=== PATIENT | female | born 1955 | race Asian ===

== ENCOUNTER 2019-05-19 09:49 | Day surgery (SDC) | payer MEDICARE ==
[2019-05-16 15:13] VITALS: BMI 37.8
--- NOTE | 2019-05-19 07:41 | P.GSHP ---
History of Present Illness H&P Date: 05/19/19 CHIEF COMPLAINT: Colon screen HISTORY OF PRESENT ILLNESS: The patient is a 63-year-old female who presents for colon screen. Lower endoscopy was offered for further evaluation and management. PAST MEDICAL HISTORY: Please see list. PAST SURGICAL HISTORY: Please see list. MEDICATIONS: Please see list. ALLERGIES: Please see list. SOCIAL HISTORY: No illicit drug use FAMILY HISTORY: No reports of Crohn disease or ulcerative colitis. REVIEW OF ORGAN SYSTEMS: CONSTITUTIONAL: No reports of fevers or chills. PHYSICAL EXAM: VITAL SIGNS: Stable GENERAL: Well-developed pleasant in no acute distress. HEENT: No scleral icterus. Extraocular movements grossly intact. Moist buccal mucosa. NECK: Supple without lymphadenopathy. CHEST: Unlabored respirations. Equal bilateral excursions. CARDIOVASCULAR: Regular rate and rhythm. Distal 2+ pulses. ABDOMEN: Soft, nontender, nondistended. MUSCULOSKELETAL: No clubbing, cyanosis, or edema. ASSESSMENT: 1. Colon screen. PLAN: 1. Recommend proceeding with a lower endoscopy Past Medical History Past Medical History: Diabetes Mellitus, Eye Disorder, Hypertension, Musculoskeletal Disorder Additional Past Medical History / Comment(s): FREQUENT DIARHEA, HAS IDIOPATHIC JUXTAFOVEAL TELANGIECTASIS - RETINAL DISORDER OF EYES -LEGALLY BLIND, PROBLEM W/ RT SHOULDER, ROTATOR CUFF. History of Any Multi-Drug Resistant Organisms: None Reported Past Surgical History: Cholecystectomy, Hysterectomy, Tubal Ligation Additional Past Surgical History / Comment(s): COLONOSCOPY. Past Anesthesia/Blood Transfusion Reactions: Motion Sickness Additional Past Anesthesia/Blood Transfusion Reaction / Comment(s): MOTION SICKNESS IN PAST. Past Psychological History: Depression Smoking Status: Never smoker Past Alcohol Use History: None Reported Past Drug Use History: None Reported - Past Family History Sister(s) Family Medical History: Cancer Brother(s) Additional Family Medical History / Comment(s): "HEART PROBLEMS" Medications and Allergies Home Medications Medication Instructions Recorded Confirmed Type Enalapril [Vasotec] 20 mg PO DAILY 06/16/14 05/16/19 History Furosemide [Lasix] 20 mg PO DAILY 06/16/14 05/16/19 History Insulin NPH Hum/Reg Insulin Hm 30 unit SQ BID 01/29/15 05/16/19 History [NovoLIN 70-30 100 UNIT/ML VIAL] Metoprolol Tartrate [Lopressor] 50 mg PO BID 04/27/19 05/16/19 History metFORMIN HCL [Glucophage] 500 mg PO BID 04/27/19 05/16/19 History Allergies Allergy/AdvReac Type Severity Reaction Status Date / Time latex Allergy Dyspnea Verified 05/16/19 14:59
[~2019-05-19 09:49] MED LIST: LACTATED RINGERS 1,000 ML IV SCH; LIDOCAINE 1% (10MG/ML) FOR IV START INTRADERMA PRN
[2019-05-19 10:24] VITALS: RESP 16; TEMP 97.4
[2019-05-19] MEDS ORDERED: INSULIN ASPART (NovoLOG) 100 UNIT/ML VIAL SQ ONE (10:27)
[2019-05-19] MEDS ORDERED: LIDOCAINE 1% INJ 10MG/ML (20 ML MDV) ONE (10:33)
[2019-05-19] MEDS ORDERED: LABETALOL 5 MG/ML VIAL MDV ONE (10:33)
[2019-05-19] MEDS ORDERED: PROPOFOL 10 MG/ML 20 ML VIAL IV ONE (10:33)
[2019-05-19 10:37] LABS: Glucose,Whole Blood 277 mg/dL (75-99)
[2019-05-19 11:11] LABS: Glucose,Whole Blood 278 mg/dL (75-99)
--- NOTE | 2019-05-19 11:14 | P.PCN ---
Date of Procedure: 05/19/19 Description of Procedure: PREOPERATIVE DIAGNOSIS: Personal history of colon polyps Colonoscopy screening POSTOPERATIVE DIAGNOSIS: Personal history of colon polyps Colonoscopy screening Sigmoid diverticulosis Transverse colon polyp OPERATION: Colonoscopy to the ileocecal valve and appendiceal orifice. Colonoscopy with cold forceps biopsies SURGEON: Yudelka Aguilar MD. ANESTHESIA: MAC. INDICATIONS: The patient is an 63-year-old female who presents with personal history of colon polyps. Last colonoscopy over 5 years. Benefits and risks were described and informed consent was obtained. DESCRIPTION OF PROCEDURE: The patient had undergone Suprep. She had been brought into the operating room and laid in the left lateral decubitus position. After adequate intravenous sedation, the rectum was examined with 2% lidocaine jelly. No external hemorrhoids were encountered. The rectal tone was within normal limits. No lesions were palpated in the rectal vault. An Olympus colonoscope was advanced until the ileocecal valve and appendiceal orifice were clearly viewed. The prep was excellent. Sigmoid diverticulosis was encountered. Redundancy was identified at the distal sigmoid colon from severe diverticulosis. Distal transverse colon 4mm polyp was removed with cold forceps biopsy. No evidence of focal colitis was found. Retroflexion of the scope demonstrated grade 1 internal hemorrhoids without active bleeding or inflammation. The colon was desufflated. The patient had tolerated the procedure well. Withdrawal time was over 6 minutes. FINDINGS: Aronchick preparation quality scale 1 (1-5) Internal hemorrhoids, grade 1 No external hemorrhoids No arteriovenous malformations. Sigmoid diverticulosis with redundancy at distal sigmoid colon. Removal of 1 polyp: - Cold forceps biopsy at distal transverse colon, 4 mm polyp. No focal colitis. RECOMMENDATIONS: Repeat colonoscopy in 5 years, 2024 Plan - Discharge Summary Discharge Rx Participant: No New Discharge Prescriptions: Continue Furosemide [Lasix] 20 mg PO DAILY Enalapril [Vasotec] 20 mg PO DAILY Insulin NPH Hum/Reg Insulin Hm [NovoLIN 70-30 100 UNIT/ML VIAL] 30 unit SQ BID metFORMIN HCL [Glucophage] 500 mg PO BID Metoprolol Tartrate [Lopressor] 50 mg PO BID Discharge Medication List Enalapril [Vasotec] 20 mg PO DAILY 06/16/14 [History] Furosemide [Lasix] 20 mg PO DAILY 06/16/14 [History] Insulin NPH Hum/Reg Insulin Hm [NovoLIN 70-30 100 UNIT/ML VIAL] 30 unit SQ BID 01/29/15 [History] Metoprolol Tartrate [Lopressor] 50 mg PO BID 04/27/19 [History] metFORMIN HCL [Glucophage] 500 mg PO BID 04/27/19 [History] Follow up Appointment(s)/Referral(s): Yudelka Aguilar MD [STAFF PHYSICIAN] - As Needed Patient Instructions/Handouts: Diverticulosis (DC), Colorectal Polyps (DC), Diverticulosis Diet (GEN) Activity/Diet/Wound Care/Special Instructions: Repeat colonoscopy 5 years, 2024 Discharge Disposition: HOME SELF-CARE
[2019-05-19 11:23] VITALS: BP 172/79; PULSE 82
== END 2019-05-19 11:51 | disposition home or self-care (01) ==
LOC: ORWHC2ENDO 09:49
PROVIDERS: ATTEND Surgery Plastic and Reconstructive Surgery
DX: Z12.11 Encounter for screening for malignant neoplasm of colon (principal); D12.3 Benign neoplasm of transverse colon; Z86.010 Personal history of colon polyps; K57.30 Diverticulosis of large intestine without perforation or abscess without bleeding; Q43.8 Other specified congenital malformations of intestine; K64.0 First degree hemorrhoids; Z91.040 Latex allergy status; E11.9 Type 2 diabetes mellitus without complications; H54.8 Legal blindness, as defined in USA; I10 Essential (primary) hypertension; M25.811 Other specified joint disorders, right shoulder; Z87.19 Personal history of other diseases of the digestive system; H35.073 Retinal telangiectasis, bilateral; Z90.49 Acquired absence of other specified parts of digestive tract; Z90.710 Acquired absence of both cervix and uterus; Z98.51 Tubal ligation status; Z87.898 Personal history of other specified conditions; F32.9 Major depressive disorder, single episode, unspecified; Z80.9 Family history of malignant neoplasm, unspecified; Z82.49 Family history of ischemic heart disease and other diseases of the circulatory system; Z79.899 Other long term (current) drug therapy; Z79.4 Long term (current) use of insulin; Z86.69 Personal history of other diseases of the nervous system and sense organs
CPT/HCPCS: 88305; 45380; J2001; J2704

== ENCOUNTER → 2019-05-19 | Outpatient (CLI) | payer MEDICARE ==
[2019-05-19 12:41] LABS: African American GFR (CKD) >90 (>60 ml/min/1.73 sqM); Blood Urea Nitrogen 11 mg/dL (7-17); Non-African American GFR(CKD) >90 (>60 ml/min/1.73 sqM)
--- NOTE | 2019-05-19 14:01 | CT ---
EXAMINATION TYPE: CT abdomen pelvis w con DATE OF EXAM: 05/19/2019 COMPARISON: 04/21/2010 HISTORY: 63-year-old female Diverticulitis, abdominal pain TECHNIQUE: Contiguous axial scanning of the abdomen and pelvis following administration of 100 ml Iso vega 300 IV contrast. Delayed images through the kidneys and coronal/sagittal reconstructions perform ed. CT DLP: 2146.4 mGycm Automated exposure control for dose reduction was used. FINDINGS: LUNG BASES: Streaky bibasilar atelectasis, left greater than right. Dense mitral annular calcificatio ns. LIVER/GB: Liver enlarged measuring 23.5 cm cranial caudal with low attenuation. No focal liver lesion or biliary ductal dilatation. Portal venous system is patent. Cholecystectomy clips. PANCREAS: No significant abnormality is seen. SPLEEN: No significant abnormality is seen. ADRENALS: No significant abnormality is seen. KIDNEYS: A 1 cm cortical hypodensity in each kidney, too small for accurate CT characterization, like ly tiny cysts. LYMPH NODES: No mesenteric or retroperitoneal lymphadenopathy. Subtle residual mid abdominal Kp me sentery is redemonstrated. Changes overall have diminished from 2011. REPRODUCTIVE ORGANS: Multiple pelvic phlebolith. Uterus surgically absent. Neither ovary clearly iden tified. Bladder partially distended. No abnormal fluid collection in the pelvis or pelvic lymphadenop athy. BOWEL: No dilated small bowel, free fluid, or free air. No significant stool burden. No pericolonic inflammatory change. Diverticula is seen along the mid to distal sigmoid. BONES: Mild degenerative changes at the hips. Facet arthropathy lower lumbar spine. IMPRESSION: 1. A TINY DIVERTICULUM ALONG THE MID TO DISTAL SIGMOID. NO EVIDENCE FOR ACUTE DIVERTICULITIS. 2. 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 CORRELATE WITH LFT's, LIPID PROFILE, AND PATIENT RI SK FACTORS. 3. OVERALL MIDABDOMINAL KP MESENTERY SEEN IN 2010 HAS DECREASED IN THE INTERVAL. FINDINGS SUGGEST A CHRONIC POSTINFLAMMATORY ETIOLOGY.
== END | disposition home or self-care (01) ==
LOC: RADCTMAIN 11:54
PROVIDERS: ATTEND Surgery Plastic and Reconstructive Surgery
DX: K76.0 Fatty (change of) liver, not elsewhere classified (principal); K57.30 Diverticulosis of large intestine without perforation or abscess without bleeding; R16.0 Hepatomegaly, not elsewhere classified; K57.92 Diverticulitis of intestine, part unspecified, without perforation or abscess without bleeding
CPT/HCPCS: 82565; 84520; 74177; 36415; Q9967

== ENCOUNTER → 2020-06-08 | Outpatient (CLI) | payer MEDICARE ==
[2020-06-08 15:16] LABS: INR 0.9 (<1.2)
[2020-06-08 15:17] LABS: Prothrombin Time 9.9 sec (9.0-12.0)
[2020-06-08 15:27] LABS: Partial Thromboplastin Time 21.7 sec (22.0-30.0)
[2020-06-08 23:27] LABS: HCT 42.8 % (37.2-46.3); HGB 14.1 g/dL (12.0-15.0); MCH 30.7 pg (27.0-32.0); MCHC 32.9 g/dL (32.0-37.0); MCV 93.2 fL (80.0-97.0); Mean Platelet Volume 9.8 fL (9.5-12.2); Platelet Count 346 X 10*3/uL (140-440); RBC 4.59 X 10*6/uL (4.10-5.20); RDW 12.7 % (11.5-14.5); WBC 8.85 X 10*3/uL (4.50-10.00)
[2020-06-09 01:02] LABS: % Iron Saturation 39.13 (12.00-45.00); African American GFR (CKD) 90.3 (60.0-200.0); Albumin 4.6 g/dL (3.80-4.90); Albumin/Globulin Ratio 1.59 (1.60-3.17); BUN/Creat Ratio 17.5 Ratio (12.00-20.00); Calcium 9.6 mg/dL (8.7-10.3); Chol/HDL Ratio 3.87; Globulin 2.9 g/dL (1.6-3.3); LDL Cholesterol,Calculated 98.8 mg/dL (0.0-131.0); Magnesium 1.9 mg/dL (1.5-2.4); Non-African American GFR(CKD) 77.9 (60.0-200.0); Phosphorus 4.1 mg/dL (2.4-5.1); Total Bilirubin 0.4 mg/dL (0.3-1.2); Total Protein 7.5 g/dL (6.2-8.2); VLDL Calculation 33.2 mg/dL (5.00-40.00)
[2020-06-09 01:10] LABS: Ferritin 57.7 ng/mL (10.0-291.0)
[2020-06-09 03:23] LABS: Hemoglobin A1C 8.1 % (4.0-6.0)
== END | disposition home or self-care (01) ==
LOC: LABWHC1 14:18
PROVIDERS: ATTEND Surgery Plastic and Reconstructive Surgery
DX: E21.1 Secondary hyperparathyroidism, not elsewhere classified (principal); E89.1 Postprocedural hypoinsulinemia; D50.8 Other iron deficiency anemias; K90.89 Other intestinal malabsorption; E55.9 Vitamin D deficiency, unspecified; K74.1 Hepatic sclerosis; N19 Unspecified kidney failure; K50.90 Crohn's disease, unspecified, without complications; E66.01 Morbid (severe) obesity due to excess calories
CPT/HCPCS: 36415; 80053; 80061; 82306; 82525; 82607; 82728; 82746; 83036; 83540; 83550; 83735; 83970; 84100; 84134; 84255; 84425; 84443; 84590; 84630; 85027; 85610; 85730

== ENCOUNTER → 2020-07-04 | Outpatient (CLI) | payer MEDICARE ==
--- NOTE | 2020-07-04 17:14 | P.HPBAR ---
Bariatric H&P - History & Physicial H&P Date: 07/04/20 History & Physicial: Visit/CC: initial visit Patient initial contact: Initial weight: Initial weight in pounds: Height: 5 ft 4 in Initial BMI: Last weight: Current weight: 107.501 kg Current weight in pounds: 237.00 Current BMI: 40.6 [place] body weight (based on NIH guidelines): 54.431 kg Excess body weight loss: The patient is a 65 year-old F who presents for Bariatric Assessment. DATE OF SERVICE: 07/04/2020 REASON FOR CONSULTATION: Initial bariatric evaluation. HISTORY OF PRESENT ILLNESS: Sharron Pearson is a 65-year-old female who comes with morbid obesity including co-morbidities of insulin dependent diabetes, hypertensive heart disease, diabetic retinopathy, osteoarthritis including panniculitis. She has been diabetic for more than 15 years. She has been suffering with morbid obesity over 20+ years. She comes in with her daughter and grandaughter. Her highest weight was 255 pounds. She presents for panniculectomy as she reports pain along her lower back, troubles with grooming from her pannus. She presents in consultation for panniculectomy and her morbid obesity. At height of 5 feet 4 inches, her ideal body weight is 144 pounds. Her highest weight is 255 pounds, BMI 43.9. She comes in 236 pounds. Her body mass index is 40.7. She is 93 pounds overweight. PAST MEDICAL HISTORY: 1. Morbid obesity due to excess calories 2. Body mass index of 43.9, initial 3. Hypertensive heart disease 4. Insulin dependent diabetes type II 5. Retinal eye disorder 6. Wood's palsy 7. Motion sickness PAST SURGICAL HISTORY: 1. Rotator cuff surgery 2. Cholecystectomy 3. Hysterectomy 4. Tubal ligation 5. Colonoscopy HOME MEDICATIONS: Home Medications Medication Instructions Recorded Confirmed Enalapril [Vasotec] 20 mg PO DAILY 06/16/14 07/04/20 Furosemide [Lasix] 20 mg PO DAILY 06/16/14 07/04/20 Insulin NPH Hum/Reg Insulin Hm 30 unit SQ BID 01/29/15 07/04/20 [NovoLIN 70-30 100 UNIT/ML VIAL] Metoprolol Tartrate [Lopressor] 50 mg PO BID 04/27/19 07/04/20 metFORMIN HCL [Glucophage] 500 mg PO BID 04/27/19 07/04/20 ALLERGIES: Allergies Allergy/AdvReac Type Severity Reaction Status Date / Time latex Allergy Severe Anaphylaxis Verified 07/04/20 16:37 SOCIAL HISTORY: Denies tobacco use. FAMILY HISTORY: No family history of ulcerative colitis disease or Crohn's disease. Family history of morbid obesity. No lupus in the family. No reports of stomach or esophageal cancer. REVIEW OF ORGAN SYSTEMS: CONSTITUTIONAL: At height of 5 feet 4 inches, her ideal body weight is 144 pounds. Her highest weight is 255 pounds, BMI 43.9. She comes in 236 pounds. Her body mass index is 40.7. She is 93 pounds overweight. HEENT: Denies any active troubles with hearing. Has retinopathy. ENDOCRINE: Has diabetes and insulin dependent. No hypothyroidism. CARDIOVASCULAR: Past reports of palpitations or heart attacks or chest pain. Has hypertensive heart disease. RESPIRATORY: Has daytime somnolence. Has asthma. Has chronic obstructive pulmonary disease. GASTROINTESTINAL: Denies any bright red blood per rectum. No diarrhea. No constipation. . GENITOURINARY: Has bladder urgency. No recent blood in urine MUSCULOSKELETAL: Has lower back pain and joint pain. NEURO: No headaches. No seizure disorders. Has neuropathy. PSYCH: Has depression. No suicidal ideation. RHEUMATOLOGIC: No lupus. No rheumatoid arthritis. HEMATOLOGIC: Denies any abnormal bleeding or bruising. SKIN: Has panniculitis. No skin cancer. PHYSICAL EXAM: VITAL SIGNS: Height 5 foot 4 inches, weight 236 pounds. BMI 40.7 Vital Signs Temp 98.2 F 07/04/20 16:27 Pulse 89 07/04/20 16:27 Resp 18 07/04/20 16:27 BP 178/84 07/04/20 16:27 Pulse Ox GENERAL: Well-developed in no acute distress. HEENT: No scleral icterus. Extraocular movements grossly intact. Hears conversational speech. No nasal drainage. NECK: Supple without lymphadenopathy. CHEST: Nonlabored respirations with equal bilateral excursions. CARDIOVASCULAR: Regular rate and regular rhythm. Distal 2+ pulses. ABDOMEN: Obese, soft, nontender, nondistended. Moderate size pannus, Grade 4 panniculosis. Moderate panniculitis. MUSCULOSKELETAL: No clubbing, cyanosis. NEURO: No focal or lateralizing signs. Cranial nerves 2 through 12 grossly within normal limits. PSYCH: Appropriate affect. Alert and oriented to person, place and time. SKIN: Good skin turgor. Well perfused. LABS: Hgb A1c elevated 8.1, triglycerides elevated, vitamin D is low, Selenium elevated ASSESSMENT: 1. Morbid obesity due to excess calories 2. Body mass index of 43.9, initial 3. Hypertensive heart disease 4. Insulin dependent diabetes type II 5. Retinal eye disorder 6. Wood's palsy 7. Motion sickness 8. Panniculitis 9. Hypertriglyceridemia 10. Vitamin D deficiency PLAN: 1. Surgical options including a band, gastric bypass, sleeve gastrectomy were described in detail. However, she is looking into panniculectomy 2. Dietary surveillance and counseling was reviewed. Increased protein intake over 65 grams daily advised. 3. Will need cardiac risk assessment. 4. Recommend medical risk assessment. 5. Recommend 12-lead EKG. 6. Recommend Vitamin D 07917 units weekly. Thank you for this consultation. Past Medical History Past Medical History: Diabetes Mellitus, Eye Disorder, Hypertension, Musculoskeletal Disorder Additional Past Medical History / Comment(s): FREQUENT DIARHEA, HAS IDIOPATHIC JUXTAFOVEAL TELANGIECTASIS - RETINAL DISORDER OF EYES -LEGALLY BLIND, PROBLEM W/ RT SHOULDER, ROTATOR CUFF. bells palsy Decemeber 2019. History of Any Multi-Drug Resistant Organisms: None Reported Past Surgical History: Cholecystectomy, Hysterectomy, Tubal Ligation Additional Past Surgical History / Comment(s): COLONOSCOPY. Past Anesthesia/Blood Transfusion Reactions: Motion Sickness Additional Past Anesthesia/Blood Transfusion Reaction / Comm: MOTION SICKNESS IN PAST. Smoking Status: Never smoker - Past Family History Sister(s) Family Medical History: Cancer Brother(s) Additional Family Medical History / Comment(s): "HEART PROBLEMS" Surgical - Exam Vital Signs Temp Pulse Resp BP 98.2 F 89 18 178/84 07/04/20 16:27 07/04/20 16:27 07/04/20 16:27 07/04/20 16:27 Bariatric Checklist Checklist: Plan: Checklist: EGD: 1. Hiatal hernia: 2. H. Pylori: HgbA1c: Vitamin D: Smoking: Never smoker Primary care physician referral: Dr. Richardson Psychiatry clearance: Cardiology clearance: Sleep study: Diet journal: VTE risk score: VTE risk level: Rehab needs at discharge:
== END ==
CPT/HCPCS: 99211